=== PATIENT | male | born 1985 | race African-American/Black ===

== ENCOUNTER 2017-11-08 10:13 | Emergency (ER) | payer OTHER ==
[2017-11-08 10:21] VITALS: BP 156/95; PULSE 77; RESP 18; TEMP 98.4
--- NOTE | 2017-11-08 12:19 | ED ---
General Adult HPI - General Chief complaint: Urogenital Stated complaint: Swollen neck Source: patient Mode of arrival: ambulatory Limitations: no limitations - History of Present Illness Initial comments: Dictation was produced using Chain dictation software. please excuse any grammatical, word or spelling errors. Chief Complaint: 32 old male with no significant past medical history presents with lymphadenopathy of the right submandibular lymph node and bilateral groin masses. History of Present Illness: Patient states that over the past couple days he's been having some swelling to his right submandibular gland. Patient does not have a regular dentist. States that he's been having some dental pain of his lower right mandibular teeth. Denies any constitutional symptoms. Patient states that earlier today his lymph node was much more swollen however it improved dramatically. Patient also has secondary complaint of bilateral groin swelling. Patient has a swelling for the last 2 months. States that he believes that there are hernias they're reducible. Patient denies any nausea vomiting or obstipation. The ROS documented in this emergency department record has been reviewed and confirmed by me. Those systems with pertinent positive or negative responses have been documented in the HPI. All other systems are other negative and/or noncontributory. - Related Data Previous Rx's Medication Instructions Recorded Penicillin V Potassium [Pen Vee K] 500 mg PO QID 7 Days #30 tablet 11/08/17 Allergies Allergy/AdvReac Type Severity Reaction Status Date / Time codeine Allergy Rash/Hives Verified 11/08/17 10:21 Review of Systems ROS Statement: Those systems with pertinent positive or pertinent negative responses have been documented in the HPI. ROS Other: All systems not noted in ROS Statement are negative. Past Medical History Past Medical History: No Reported History History of Any Multi-Drug Resistant Organisms: None Reported Past Surgical History: No Surgical Hx Reported Past Psychological History: No Psychological Hx Reported Smoking Status: Current every day smoker Past Alcohol Use History: Occasional General Exam - General Exam Comments Initial Comments: PHYSICAL EXAM: General Impression: Alert and oriented x3, not in acute distress HEENT: Normocephalic atraumatic, extra-ocular movements intact, pupils equal and reactive to light bilaterally, mucous membranes moist, poor dentition, tenderness to touch of the right tooth approximately #27 Cardiovascular: Heart regular rate and rhythm, S1&S2 audible, no murmurs, rubs or gallops Chest: Lungs clear to auscultation bilaterally, no rhonchi, no wheeze, no rales Abdomen: Bowel sounds present, abdomen soft, non-tender, non-distended, no organomegaly, bilateral groin hernias that are reducible Musculoskeletal: Pulses present and equal in all extremities, no peripheral edema Motor: Power 5/5 bilaterally, no focal deficits noted Neurological: CN II-XII grossly intact, no focal motor or sensory deficits noted Skin: Intact with no visualized rashes Psych: Normal affect and mood Limitations: no limitations Course Vital Signs 11/08/17 10:18 Temperature 98.4 F Pulse Rate 77 Respiratory 18 Rate Blood Pressure 156/95 O2 Sat by Pulse 98 Oximetry Medical Decision Making - Medical Decision Making ED course: 32-year-old male presents with lymphadenopathy likely secondary to dental infection. Patient also has reducible bilateral inguinal hernias. Vital signs upon arrival are within normal limits. She does not have insurance at this time. He is given antibiotics and told to follow-up with a dentist as soon as possible. Patient also has bilateral groin hernias that are reducible. Patient told to return to the emergency department should he have any worsening pain, nausea, vomiting or lack of passing gas or having bowel movements. Patient understandable agreeable to plan. He is told to follow-up with primary care physician as soon as he gets insurance. Disposition Clinical Impression: Dental infection, Hernia Disposition: HOME SELF-CARE Condition: Good Instructions: Dental Abscess (ED), Inguinal Hernia (ED) Prescriptions: Penicillin V Potassium [Pen Vee K] 500 mg PO QID 7 Days #30 tablet Is patient prescribed a controlled substance at d/c from ED?: No Referrals: None,Stated [Primary Care Provider] - 1-2 days Time of Disposition: 12:19
== END 2017-11-08 12:30 | disposition home or self-care (01) ==
LOC: EC 10:13
DX: K04.7 Periapical abscess without sinus (principal); K40.20 Bilateral inguinal hernia, without obstruction or gangrene, not specified as recurrent; F17.200 Nicotine dependence, unspecified, uncomplicated; Z88.5 Allergy status to narcotic agent
CPT/HCPCS: 99283

== ENCOUNTER 2020-09-13 10:57 | Emergency (ER) | payer OTHER ==
[2020-09-13 11:12] VITALS: RESP 16
[2020-09-13] MEDS ORDERED: IBUPROFEN 600 MG TAB PO STA (11:23)
--- NOTE | 2020-09-13 11:56 | XR ---
Right hand and right wrist HISTORY: Pain Four views of the right wrist, 3 views of the right hand Bone mineralization, joint spaces and alignment are maintained. No fracture or dislocation. Sclerotic density involving the proximal aspect of the proximal phalanx of the second digit right hand may rep resent bone island. IMPRESSION: No abnormality evident to account for patient's symptoms
--- NOTE | 2020-09-13 12:04 | ED ---
General Adult HPI - General Chief complaint: Extremity Injury, Upper Stated complaint: right wrist injury Time Seen by Provider: 09/13/20 11:13 Source: patient Mode of arrival: ambulatory Limitations: no limitations - History of Present Illness Initial comments: 34-year-old male presents to the emergency room for a chief complaint of right wrist pain. Patient was wrestling with his brother and injured his right wrist below his thumb. Patient states this was 6 days ago and it is still hurting him. He has tried Tylenol at home but it does not seem to be helping. He has wrapped his wrist.Patient has no other complaints at this time including shortness of breath, chest pain, abdominal pain, nausea or vomiting, headache, or visual changes. - Related Data Previous Rx's Medication Instructions Recorded Penicillin V Potassium [Pen Vee K] 500 mg PO QID 7 Days #30 tablet 11/08/17 Allergies Allergy/AdvReac Type Severity Reaction Status Date / Time codeine Allergy Rash/Hives Verified 09/13/20 11:12 Review of Systems ROS Statement: Those systems with pertinent positive or pertinent negative responses have been documented in the HPI. ROS Other: All systems not noted in ROS Statement are negative. Past Medical History Past Medical History: No Reported History History of Any Multi-Drug Resistant Organisms: None Reported Past Surgical History: No Surgical Hx Reported Past Psychological History: No Psychological Hx Reported Smoking Status: Current some day smoker Past Alcohol Use History: Occasional Past Drug Use History: Marijuana General Exam Limitations: no limitations General appearance: alert, in no apparent distress Head exam: Present: atraumatic Eye exam: Present: normal appearance, PERRL, EOMI. Absent: scleral icterus, conjunctival injection, periorbital swelling ENT exam: Present: normal exam, mucous membranes moist Neck exam: Present: normal inspection, full ROM. Absent: tenderness, meningismus, lymphadenopathy Respiratory exam: Present: normal lung sounds bilaterally. Absent: respiratory distress, wheezes, rales, rhonchi, stridor Cardiovascular Exam: Present: regular rate, normal rhythm, normal heart sounds. Absent: systolic murmur, diastolic murmur, rubs, gallop, clicks Extremities exam: Present: tenderness (Tenderness noted to the radial aspect of the right wrist as well as the scaphoid.), normal capillary refill (Capillary refill less than 2 seconds, radial pulse 2+ right upper extremity.), joint swelling (Minimal edema noted over the radial aspect of the right wrist.), other (Sensation intact right wrist.). Absent: full ROM (Patient has limited flexion and extension of the right wrist secondary to pain but mechanisms are intact.), pedal edema, calf tenderness Course Vital Signs 09/13/20 11:09 Temperature 98.1 F Pulse Rate 83 Respiratory 16 Rate Blood Pressure 160/107 O2 Sat by Pulse 98 Oximetry Procedures - Orthopedic Splinting/Casting Injury #1 Side: right Upper Extremity Injury Location: short arm Upper Extremity Immobilizer: thumb spica Additional Comments: Neurovascular status intact after splint applied Medical Decision Making - Medical Decision Making hand and wrist x-rays are negative for acute process. However given patient has scaphoid tenderness patient was placed in a thumb spica and referred to orthopedics. He will follow-up tomorrow. He will return for any worsening symptoms. Disposition Clinical Impression: Wrist pain Disposition: HOME SELF-CARE Condition: Good Instructions (If sedation given, give patient instructions): Wrist Injury (ED) Additional Instructions: Please keep splint dry. Take Motrin and Tylenol for pain. Call orthopedics Monday for an appointment. Return to the emergency room for any worsening symptoms. Is patient prescribed a controlled substance at d/c from ED?: No Referrals: Enrike Mi Jr, DO [Primary Care Provider] - 1-2 days Gilberto Son MD [STAFF PHYSICIAN] - 1-2 days Time of Disposition: 12:19
[2020-09-13 13:01] VITALS: BP 148/79; PULSE 79; TEMP 98
== END 2020-09-13 13:01 | disposition home or self-care (01) ==
LOC: EC 10:57
DX: M25.531 Pain in right wrist (principal); F17.200 Nicotine dependence, unspecified, uncomplicated; Z88.5 Allergy status to narcotic agent; W50.0XXA Accidental hit or strike by another person, initial encounter; Y93.72 Activity, wrestling
CPT/HCPCS: 99283

== ENCOUNTER 2022-02-22 20:38 | Emergency (ER) | payer OTHER ==
[2022-02-22 20:44] VITALS: BP 140/90; RESP 16; TEMP 98
[2022-02-22 20:50] VITALS: PULSE 82
[2022-02-22] MEDS ORDERED: KETOROLAC 15 MG/ML 1 ML VIAL IM STA (21:02)
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
== END 2022-02-22 22:27 | disposition home or self-care (01) ==
LOC: EC 20:38
DX: S16.1XXA Strain of muscle, fascia and tendon at neck level, initial encounter (principal); F17.200 Nicotine dependence, unspecified, uncomplicated; F12.90 Cannabis use, unspecified, uncomplicated; Z88.5 Allergy status to narcotic agent; V89.2XXA Person injured in unspecified motor-vehicle accident, traffic, initial encounter; Y92.410 Unspecified street and highway as the place of occurrence of the external cause
CPT/HCPCS: 99284; 96372; J1885

== ENCOUNTER 2023-02-24 12:56 | Emergency (ER) | payer SELFPAY ==
[2023-02-24 13:27] VITALS: TEMP 98.6
--- NOTE | 2023-02-24 13:43 | ED ---
General Adult HPI - General Chief complaint: Urogenital Stated complaint: STD testing Time Seen by Provider: 02/24/23 13:10 Source: patient Mode of arrival: ambulatory Limitations: no limitations - History of Present Illness Initial comments: 37-year-old male presents to the emergency department requesting STD testing. States that he found out that his partner was unfaithful and tested positive for a sexually transmitted infection. He does not have any symptoms. No penile discharge. No testicular pain. No rashes. No other alleviating, precipitating or modifying factors - Related Data Home Medications Medication Instructions Recorded Confirmed No Known Home Medications 02/22/22 02/22/22 Allergies Allergy/AdvReac Type Severity Reaction Status Date / Time codeine Allergy Rash/Hives Verified 09/13/20 11:12 Review of Systems ROS Statement: Those systems with pertinent positive or pertinent negative responses have been documented in the HPI. ROS Other: All systems not noted in ROS Statement are negative. Past Medical History Past Medical History: No Reported History History of Any Multi-Drug Resistant Organisms: None Reported Past Surgical History: No Surgical Hx Reported, Hernia Repair Past Psychological History: No Psychological Hx Reported Smoking Status: Current some day smoker Past Alcohol Use History: Occasional Past Drug Use History: Marijuana General Exam Limitations: no limitations General appearance: alert, in no apparent distress Head exam: Present: atraumatic, normocephalic, normal inspection Eye exam: Present: normal appearance, PERRL, EOMI. Absent: scleral icterus, conjunctival injection, periorbital swelling ENT exam: Present: normal exam, mucous membranes moist Neck exam: Present: normal inspection. Absent: tenderness, meningismus, lymphadenopathy Respiratory exam: Present: normal lung sounds bilaterally. Absent: respiratory distress, wheezes, rales, rhonchi, stridor Cardiovascular Exam: Present: regular rate, normal rhythm, normal heart sounds. Absent: systolic murmur, diastolic murmur, rubs, gallop, clicks GI/Abdominal exam: Present: soft, normal bowel sounds. Absent: distended, tenderness, guarding, rebound, rigid Extremities exam: Present: normal inspection, full ROM, normal capillary refill. Absent: tenderness, pedal edema, joint swelling, calf tenderness Back exam: Present: normal inspection Neurological exam: Present: alert, oriented X3, CN II-XII intact Psychiatric exam: Present: normal affect, normal mood Skin exam: Present: warm, dry, intact, normal color. Absent: rash Course Vital Signs 02/24/23 02/24/23 13:07 14:17 Temperature 98.6 F Pulse Rate 100 98 Respiratory 20 16 Rate Blood Pressure 189/110 173/122 O2 Sat by Pulse 98 100 Oximetry Medical Decision Making - Medical Decision Making Was pt. sent in by a medical professional or institution (, [facility], LEGAL REFEREE, urgent care, hospital, or alf...) When possible be specific @ -No Did you speak to anyone other than the patient for history (EMS, parent, family, police, friend...)? What history was obtained from this source @ -No Did you review nursing and triage notes (agree or disagree)? Why? @ -I reviewed and agree with nursing and triage notes Were old charts reviewed (outside hosp., previous admission, EMS record, old EKG, old radiological studies, urgent care reports/EKG's, alf records)? Report findings @ -No old charts were reviewed Differential Diagnosis (chest pain, altered mental status, abdominal pain women, abdominal pain men, vaginal bleeding, weakness, fever, dyspnea, syncope, headache, dizziness, GI bleed, back pain, seizure, CVA, palpatations, mental health, musculoskeletal)? @ -Chlamydia, gonorrhea, Trichomonas, HIV EKG interpreted by me (3pts min.). @ -Not done X-rays interpreted by me (1pt min.). @ -None done CT interpreted by me (1pt min.). @ -None done U/S interpreted by me (1pt. min.). @ -None done What testing was considered but not performed or refused? (CT, X-rays, U/S, labs)? Why? @ -None What meds were considered but not given or refused? Why? @ -None Did you discuss the management of the patient with other professionals (professionals i.e. LOIDA Arellano, LEGAL REFEREE, lab, RT, psych nurse, social work professor, sales exec, teacher, youth corrections officer, counter caser)? Give summary @ -No Was smoking cessation discussed for >3mins.? @ -No Was critical care preformed (if so, how long)? @ -No Were there social determinants of health that impacted care today? How? (Homelessness, low income, unemployed, alcoholism, drug addiction, transportation, low edu. Level, literacy, decrease access to med. care, correction, rehab)? @ -No Was there de-escalation of care discussed even if they declined (Discuss DNR or withdrawal of care, Hospice)? DNR status @ -No What co-morbidities impacted this encounter? (DM, HTN, Smoking, COPD, CAD, Cancer, CVA, ARF, Chemo, Hep., AIDS, mental health diagnosis, sleep apnea, morbid obesity)? @ -None Was patient admitted / discharged? Hospital course, mention meds given and route, prescriptions, significant lab abnormalities, going to OR and other pertinent info. @Discharged. Upon arrival patient was seen in triage. He does leave a urine sample. He is agreeable to treatment. Informed that his samples will take a few days to return. He may obtain his results through my chart or medical records. Recommended that he follow-up with the health department for further testing to include HIV and hepatitis. Return for any new or worsening symptoms. Patient agreeable plan and was discharged in stable condition Undiagnosed new problem with uncertain prognosis? @ -No Drug Therapy requiring intensive monitoring for toxicity (Heparin, Nitro, Insulin, Cardizem)? @ -No Were any procedures done? @ -No Diagnosis/symptom? @ -STD exposure Acute, or Chronic, or Acute on Chronic? @ -Acute Uncomplicated (without systemic symptoms) or Complicated (systemic symptoms)? @ -uncomplicated Side effects of treatment? @ -No Exacerbation, Progression, or Severe Exacerbation? @ -No Poses a threat to life or bodily function? How? (Chest pain, [place], [place], pneumonia, PE, COPD, DKA, ARF, appy, cholecystitis, CVA, Diverticulitis, Homicidal, Suicidal, threat to staff... and all critical care pts) @ -No Disposition Clinical Impression: STD exposure Disposition: HOME SELF-CARE Condition: Stable Instructions (If sedation given, give patient instructions): Sexually Transmitted Diseases (ED) Additional Instructions: We should have the results tomorrow. You may call the ER at [phone] between 12 and [address] Robles. You may also download [facility] and see your results there. Is patient prescribed a controlled substance at d/c from ED?: No Referrals: Enrike Mi Jr, [Primary Care Provider] - 1-2 days Time of Disposition: 13:48
[2023-02-24] MEDS: cefTRIAXone 250 MG VIAL IM STA (13:54)
[2023-02-24] MEDS: AZITHROMYCIN 250 MG TAB PO STA (13:55)
[2023-02-24 14:40] VITALS: BP 173/122; PULSE 98; RESP 16
[2023-03-01 13:13] LABS: C. trachomatis,PCR Negative (Negative); N. gonorrhoeae,PCR Negative (Negative)
== END 2023-02-24 14:19 | disposition home or self-care (01) ==
LOC: EC 12:56
DX: Z20.2 Contact with and (suspected) exposure to infections with a predominantly sexual mode of transmission (principal); F17.200 Nicotine dependence, unspecified, uncomplicated; F12.90 Cannabis use, unspecified, uncomplicated
CPT/HCPCS: 99283; 96372; 87491; 87591; J0696

== ENCOUNTER 2023-06-29 11:55 | Emergency (ER) | payer OTHER ==
--- NOTE | 2023-06-29 13:20 | ED ---
Fever HPI - General Chief Complaint: Fever Stated Complaint: Fever, Congestion,weakness Time Seen by Provider: 06/29/23 12:45 Source: patient, RN notes reviewed, old records reviewed Mode of arrival: ambulatory Limitations: no limitations - History of Present Illness Initial Comments: This is a 37-year-old male to the ER for evaluation of cough and congestion. Persistent cough and congestion here in the ER he does self with concerns of pneumonia no travels no sick contacts that he knows, patient does have positive fever MD Complaint: fever, other (Cough and congestion) Temperature Source: subjective, oral Context: sick contacts Associated Symptoms: chills, myalgias, nasal congestion, sore throat Treatments Prior to Arrival: none - Related Data Previous Rx's Medication Instructions Recorded Amoxic-Pot Clav 875-125Mg 1 tab PO Q12HR #20 tablet 06/29/23 [Augmentin 875-125] Azithromycin [Zithromax] 500 mg PO DAILY #5 tab 06/29/23 Allergies Allergy/AdvReac Type Severity Reaction Status Date / Time codeine Allergy Rash/Hives Verified 06/29/23 12:27 Review of Systems ROS Statement: Those systems with pertinent positive or pertinent negative responses have been documented in the HPI. ROS Other: All systems not noted in ROS Statement are negative. Past Medical History Past Medical History: Hypertension History of Any Multi-Drug Resistant Organisms: None Reported Past Surgical History: Hernia Repair Past Psychological History: No Psychological Hx Reported Smoking Status: Current every day smoker Past Alcohol Use History: Occasional Past Drug Use History: Marijuana General Exam Limitations: no limitations General appearance: alert, in no apparent distress, anxious Head exam: Present: atraumatic, normocephalic, normal inspection Eye exam: Present: normal appearance, PERRL, EOMI. Absent: scleral icterus, conjunctival injection, periorbital swelling ENT exam: Present: normal exam, mucous membranes moist Neck exam: Present: normal inspection. Absent: tenderness, meningismus, lymphadenopathy Respiratory exam: Present: normal lung sounds bilaterally. Absent: respiratory distress, wheezes, rales, rhonchi, stridor Cardiovascular Exam: Present: regular rate, normal rhythm, normal heart sounds. Absent: systolic murmur, diastolic murmur, rubs, gallop, clicks GI/Abdominal exam: Present: soft, normal bowel sounds. Absent: distended, tenderness, guarding, rebound, rigid Extremities exam: Present: normal inspection, full ROM, normal capillary refill. Absent: tenderness, pedal edema, joint swelling, calf tenderness Back exam: Present: normal inspection Neurological exam: Present: alert, oriented X3, CN II-XII intact Psychiatric exam: Present: normal affect, normal mood Skin exam: Present: warm, dry, intact, normal color. Absent: rash Course Vital Signs 06/29/23 06/29/23 12:23 14:09 Temperature 99.1 F 99.0 F Pulse Rate 101 H 79 Respiratory 18 16 Rate Blood Pressure 151/120 145/111 O2 Sat by Pulse 99 96 Oximetry - Reevaluation(s) Reevaluation #1: 06/29/23 13:45 Medical records reviewed Reevaluation #2: 06/29/23 13:45 Patient symptoms improved Reevaluation #3: 06/29/23 13:45 Patient informed of results questions answered Reevaluation #4: Was pt. sent in by a medical professional or institution (, PA, VALVE PIPE IRRIGATOR, urgent care, hospital, or usp...) When possible be specific @ -no Did you speak to anyone other than the patient for history (EMS, parent, family, police, friend...)? What history was obtained from this source @ -no Did you review nursing and triage notes (agree or disagree)? Why? @ -agree Are old charts reviewed (outside hosp., previous admission, EMS record, old EKG, old radiological studies, urgent care reports/EKG's, usp records)? Report findings @ -yes Differential Diagnosis (chest pain, altered mental status, abdominal pain women, abdominal pain men, vaginal bleeding, weakness, fever, dyspnea, syncope, headache, dizziness, GI bleed, back pain, seizure, CVA, palpatations, mental health, musculoskeletal)? @ -prior EKG interpreted by me (3pts min.). @ -no X-rays interpreted by me (1pt min.). @ -yes positive for pneumonia CT interpreted by me (1pt min.). @ -no U/S interpreted by me (1pt. min.). @ -no What testing was considered but not performed or refused? (CT, X-rays, U/S, labs)? Why? @ -none What meds were considered but not given or refused? Why? @ -none Did you discuss the management of the patient with other professionals (professionals i.e. , PA, VALVE PIPE IRRIGATOR, lab, RT, psych nurse, social sciences research scientist, net c developer, teacher, defence force senior officer, returned case inspector)? Give summary @ -no Was smoking cessation discussed for >3mins.? @ -no Was critical care preformed (if so, how long)? @ -no Were there social determinants of health that impacted care today? How? (Homelessness, low income, unemployed, alcoholism, drug addiction, transportation, low edu. Level, literacy, decrease access to med. care, half-way, rehab)? @ -none Was there de-escalation of care discussed even if they declined (Discuss DNR or withdrawal of care, Hospice)? DNR status @ -no What co-morbidities impacted this encounter? (DM, HTN, Smoking, COPD, CAD, Cancer, CVA, ARF, Chemo, Hep., AIDS, mental health diagnosis, sleep apnea, morbid obesity)? @ -none Was patient admitted / discharged? Hospital course, mention meds given and route, prescriptions, significant lab abnormalities, going to OR and other pertinent info. @ - 37 male for cough congestion positive fever positive pneumonia. Patient will be discharged home with outpatient pneumonia treatment Discharge Undiagnosed new problem with uncertain prognosis? @ -no Drug Therapy requiring intensive monitoring for toxicity (Heparin, Nitro, Insulin, Cardizem)? @ -no Were any procedures done? @ -no Diagnosis/symptom? @ -Fever and pneumonia Acute, or Chronic, or Acute on Chronic? @ -Acute Uncomplicated (without systemic symptoms) or Complicated (systemic symptoms)? @ -Complicated Side effects of treatment? @ -no Exacerbation, Progression, or Severe Exacerbation? @ -exacerbation Poses a threat to life or bodily function? How? (Chest pain, USA, ID, pneumonia, PE, COPD, DKA, ARF, appy, cholecystitis, CVA, Diverticulitis, Homicidal, Suicidal, threat to staff... and all critical care pts) @ -yes with fever and pneumonia Reevaluation #5: Differential Fever: Pneumonia, viral URI, endocarditis, myocarditis, pericarditis, otitis, sinusitis, peritonsillar Abscess, retropharyngeal Abscess, epiglottitis, peritonitis, appendicitis, Meli cystitis, diverticulitis, hepatitis, colitis, UTI, PID, TOA, pyelonephritis, prostatitis, epididymitis, meningitis, encephalitis, pulmonary embolism, CVA, thyroid storm, pancreatitis, adrenal crisis, cavernous sinus thrombosis, this is not meant to be an all-inclusive list. Medical Decision Making - Medical Decision Making 37 male for cough congestion positive fever positive pneumonia. Patient will be discharged home with outpatient pneumonia treatment - Lab Data Lab Results 06/29/23 Range/Units 12:29 Influenza Type A (PCR) Not Detected (Not Detectd) Influenza Type B (PCR) Not Detected (Not Detectd) RSV (PCR) Not Detected (Not Detectd) SARS-CoV-2 (PCR) Not Detected (Not Detectd) - Radiology Data Radiology results: report reviewed (This x-ray is positive for pneumonia), image reviewed Disposition Clinical Impression: Community acquired pneumonia, Fever Disposition: HOME SELF-CARE Condition: Good Instructions (If sedation given, give patient instructions): Fever in Adults (ED), Community Acquired Pneumonia (ED) Prescriptions: Amoxic-Pot Clav 875-125Mg [Augmentin 875-125] 1 tab PO Q12HR #20 tablet Azithromycin [Zithromax] 500 mg PO DAILY #5 tab Is patient prescribed a controlled substance at d/c from ED?: No Referrals: Enrike Mi Jr, [Primary Care Provider] - 1-2 days Time of Disposition: 13:45
--- NOTE | 2023-06-29 13:43 | XR ---
EXAMINATION TYPE: XR chest 2V DATE OF EXAM: 06/29/2023 COMPARISON: 07/19/2009 HISTORY: 37-year-old male with cough and fever TECHNIQUE: PA and lateral views FINDINGS: Heart normal size. Aorta and pulmonary vascularity within normal limits. Bullous change right greater than left upper lungs. Some mild patchy density at the periphery of the right midlung. No other cons olidation or pleural effusion seen. IMPRESSION: There may be underlying bullous emphysema. This would be unusual for the patient's age and further co rrelation with smoking history is advised. Unable to exclude early developing patchy infiltrate at th e periphery of the right mid lung.
[2023-06-29] MEDS: ACETAMINOPHEN TAB 500 MG TAB PO STA (14:01)
[2023-06-29] MEDS: dexAMETHasone 2 MG TAB PO STA (14:02)
[2023-06-29] MEDS: AMOXIC-POT CLAV 875-125MG 1 EACH TAB PO STA (14:03)
[2023-06-29] MEDS: IBUPROFEN 800 MG TAB PO STA (14:03)
[2023-06-29] MEDS: AZITHROMYCIN 500 MG TAB PO STA (14:04)
[2023-06-29] MEDS: AMOXIC-POT CLAV 875MG STARTER PACK 2 TAB BTL PO STA (14:04)
[2023-06-29 14:43] VITALS: BP 145/111; PULSE 79; RESP 16; TEMP 99
== END 2023-06-29 14:10 | disposition home or self-care (01) ==
LOC: EC 11:55
DX: J18.9 Pneumonia, unspecified organism (principal); F17.200 Nicotine dependence, unspecified, uncomplicated; Z88.5 Allergy status to narcotic agent
CPT/HCPCS: 87636; 71046; 99283; J8540